=== PATIENT | male | born 1980 | race Two or more races ===

== ENCOUNTER 2021-03-18 18:03 | Emergency (ER) | payer SELFPAY ==
[~2021-03-18] VITALS: Ht 188 cm; Wt 77.1 kg
[2021-03-18 18:12] VITALS: BP 152/92
== END 2021-03-18 20:10 | disposition left against medical advice (07) ==
LOC: ER 18:03
DX: R21 Rash and other nonspecific skin eruption (principal); Z53.21 Procedure and treatment not carried out due to patient leaving prior to being seen by health care provider